=== PATIENT | male | born 1980 | race Caucasian/White ===

== ENCOUNTER 2020-04-17 21:22 | Emergency (ER) | payer SELFPAY ==
[~2020-04-17] VITALS: Ht 180.3 cm; Wt 60.0 kg
[2020-04-17 21:27] VITALS: BP 110/74
[2020-04-17] MEDS ORDERED: LIDOCAINE 2%, 20ML INFIL ONE (22:00)
[2020-04-17] MEDS ORDERED: DIPH,PERTUSS(ACELL),TET VAC/PF 0.5 ML IM-VACC ONE ×2 (22:00→22:18)
[2020-04-17] MEDS ORDERED: LIDOCAINE-MPF 2% ,5ML ONE (22:29)
[2020-04-17] MEDS ORDERED: NEOSPORIN OINT. PKT 1 PACKET ONE (23:03)
--- NOTE | 2020-04-17 23:23 | NUR ---
DRESSING PLACED AND PT INSTRUCTED ON WOUND CARE, GIVEN BANDAIDS AND PACKET OF ANTIBIOTIC OINT. AWARE OF FOLLOW-UP AND WHEN TO HAVE SUTURES OUT.
== END 2020-04-17 23:27 | disposition home or self-care (01) ==
LOC: ED 23:18
DX: S61.512A Laceration without foreign body of left wrist, initial encounter (principal); Z72.9 Problem related to lifestyle, unspecified; X58.XXXA Exposure to other specified factors, initial encounter; Y93.89 Activity, other specified; Y92.488 Other paved roadways as the place of occurrence of the external cause; Y99.8 Other external cause status
CPT/HCPCS: 12042; 90471; 90715; 99284